=== PATIENT | female | born 1945 | race Caucasian/White ===

== ENCOUNTER → 2017-03-16 | Outpatient (CLI) | payer OTHER ==
[~2017-03-16] MED LIST: ACET-1256 PO; ALBU1AER9 INH; ASPEC325 PO; ATOR10TA82 PO; CALC600T9 PO; LISI-787 PO; MULT-506 PO; RXC5 PO
--- NOTE | 2017-03-16 16:39 | MAMMOGRAPHY REPORT ---
BILATERAL DIGITAL SCREENING MAMMOGRAM WITH CAD: 03/16/2017 CLINICAL HISTORY: Routine screening. Patient has no complaints. TECHNIQUE: Bilateral CC and MLO views were obtained. Current study was also evaluated with a Comput er Aided Detection (CAD) system. COMPARISON: Comparison is made to exams dated: 03/11/2016 mammogram, 03/08/2015 mammogram, 03/07/2014 mammogram, 03/03/2012 mammogram, 03/02/2011 mammogram, and 03/04/2010 ultrasound - [facility]. BREAST COMPOSITION: The tissue of both breasts is heterogeneously dense, which may obscure small ma sses. FINDINGS: The parenchymal pattern is similar to prior mammograms. There are benign rim calcificati ons and punctate microcalcifications in the right breast. Diffuse left breast might calcifications are stable on all available prior mammograms dating back to at least 2006. No developing mass, arch itectural distortion or cluster of suspicious microcalcifications is seen in either breast. IMPRESSION: ACR BI-RADS CATEGORY 2: BENIGN There is no mammographic evidence of malignancy. A 1 year screening mammogram is recommended. The p atient will receive written notification of the results. Approximately 10% of breast cancers are not detected with mammography. A negative mammographic repor t should not delay biopsy if a clinically suggestive mass is present. Romi West M.D. ay/:03/16/2017 15:19:40 Youth Probation Officer: Salma CHENG)(C[place]), [facility] letter sent: Normal 1/2 BI-RADS Code: ACR BI-RADS Category 2: Benign
== END | disposition home or self-care (01) ==
LOC: C.MAMM 10:01
PROVIDERS: ATTEND Family Medicine
DX: Z12.31 Encounter for screening mammogram for malignant neoplasm of breast (principal); R92.1 Mammographic calcification found on diagnostic imaging of breast

== ENCOUNTER 2021-04-11 06:40 | Inpatient (IN) ==
--- NOTE | 2021-03-13 13:59 | PAT Medication Instructions ---
Medication Instructions Date of Service March 13, 2021 Home Medications aspirin [Aspir-81] 81 mg PO QAM atorvastatin 80 mg PO HS calcium 250 mg PO QAM lisinopril-hydrochlorothiazide 1 tab PO QAM magnesium 250 mg PO QAM mometasone-formoterol [Dulera] 2 puff INHALATION BID naproxen sodium [Aleve] 220 mg PO Q8H PRN ASK your surgeon for instructions naproxen sodium [Aleve] 220 mg PO Q8H PRN ASK your prescriber and surgeon aspirin [Aspir-81] 81 mg PO QAM DO NOT take the morning of surgery calcium 250 mg PO QAM lisinopril-hydrochlorothiazide 1 tab PO QAM magnesium 250 mg PO QAM Take morning of surgery With a small sip of water, OTHERWISE NOTHING TO EAT OR DRINK AFTER MIDNIGHT: mometasone-formoterol [Dulera] 2 puff INHALATION BID Take evening before surgery atorvastatin 80 mg PO HS mometasone-formoterol [Dulera] 2 puff INHALATION BID Other Notes If you have any questions please call us at [phone] or [phone] or [phone] or [phone]
--- NOTE | 2021-03-14 08:39 | Anesthesiology Consultation ---
Date of Service March 14, 2021 Assessment & Plan (1) Encounter for pre-operative examination: - COVID screening: Per assessment on 03/14: Travel screen negative, no known COVID-19 positive contacts or current COVID-19 related symptoms. Patient had [facility]. Surgeon arranging preop COVID testing (scheduled 04/09; [place]). Awaiting results. - Check BSG AM DOS (hgba1c 6.5% on preop labs > no known hx of diabetes. Will forward labs to PCP for continuity of care) Chart Review Chart Review: Acceptable Risk for Surgery (pending surgeon-ordered PCP clearance) and Patient seen in Pre Admission Testing Teaching & Discussion Pre-Anesthesia Teaching/Discussion Notes: Instructed NPO after midnight before surgery,except medications with 15 cc of water. Medication instructions provided according to the PAT guidelines. History Surgery Operation Date: 04/11/21 07:15 Proposed Procedures p Right Total Ankle Replacement(Right) - DO ji Young Percutaneous Tendon Achilles Lengthening, Application of Platelet-Rich Plasma(Right) - DO ji Young Possible Hardware Removal - Alan Dyer DO Height/Weight Height: 5 ft Weight: 74.7 kg Allergies Allergy/AdvReac Type Severity Reaction Status Date / Time No Known Allergies Allergy Unverified 03/13/21 09:25 Medications Home Medications Medication Instructions Recorded Confirmed Last Taken aspirin [Aspir-81] 81 mg PO QAM 03/13/21 03/13/21 Unknown atorvastatin 80 mg PO HS 03/13/21 03/13/21 Unknown calcium 250 mg PO QAM 03/13/21 03/13/21 Unknown lisinopril-hydrochlorothiazide 1 tab PO QAM 03/13/21 03/13/21 Unknown magnesium 250 mg PO QAM 03/13/21 03/13/21 Unknown mometasone-formoterol [Dulera] 2 puff INHALATION BID 03/13/21 03/13/21 Unknown naproxen sodium [Aleve] 220 mg PO Q8H PRN 03/13/21 03/13/21 Unknown Past Medical History Medical History Asthma stable Hyperlipidemia Hypertension Obesity Osteoarthritis Exercise / Class Metabolic Activity III < 4 Walking/Shop/Light housework (one flight of stairs (no chest pain/occasional SOB)) Past Surgical History Surgical History History of colonoscopy History of surgery Left knee Past Anesthesia History No Hx of Anesthesia Complications and No Family Hx of Anesthesia Complications History of PONV No Hx of PONV and No Hx of Motion Sickness Social History Smoking Status: Never smoker Do You Dip or Chew Tobacco: No Hx Alcohol Use: No Hx Substance Use: No substance use type: does not use Review of Systems Intermittent morning cough r/t asthma- chronic, unchanged. Patient denies chest pain, shortness of breath, dyspnea on exertion, fever, chills, wheezing, palpitations. Physical Exam Vital Signs VITALS BP 154/83 P 74 TEMP 99.3 SP02 95%RA RESP 18 PHYSICAL Full cervical extension range of motion. Full TMJ range of motion. TMD 3 finger breaths Mallampati Score 3 Dentition: full dentures upper, edentulous Lungs: clear throughout to auscultation Cardiac: regular rate and rhythm, no murmurs noted Spine: normal Carotid arteries: negative bruit Extremities: no edema Lab Results Anesthesia Preop Results Results Anesthesia Widget: WBC 7.25 K/uL (4.8-10.8) 03/14/21 Hgb 12.9 g/dL (12.0-16.0) 03/14/21 Hct 39.3 % (37-47) 03/14/21 Plt 357 K/uL (130-400) 03/14/21 Na 138 mmol/L (136-145) 03/14/21 K 4.3 mmol/L (3.5-5.1) 03/14/21 Cl 105 mmol/L (98-107) 03/14/21 CO2 28 mmol/L (21-32) 03/14/21 BUN 20 mg/dl (7-18) H 03/14/21 Creat 0.65 mg/dl (0.6-1.2) 03/14/21 Glucose Level 88 mg/dl (70-99) 03/14/21 PT 9.6 Seconds (9.0-12.0) 03/14/21 PTT 24.7 Seconds (21.0-31.0) 03/14/21 INR 0.9 (0.9-1.1) 03/14/21 HA1c 6.5 % (4.5-5.6) H 03/14/21 Urine Color Yellow 03/14/21 Urine Appearance Clear (Clear) 03/14/21 Urine pH 6.0 (4.5-7.5) 03/14/21 Urine Specific [place] 1.009 (1.000-1.030) 03/14/21 Urine Protein Negative (Negative) 03/14/21 Urine Glucose (UA) Negative (Negative) 03/14/21 Urine Ketones Negative (Negative) 03/14/21 Urine Blood Trace (Negative) H 03/14/21 Urine Nitrite Negative (Negative) 03/14/21 Urine Bilirubin Negative (Negative) 03/14/21 Urine Urobilinogen Negative (Negative) 03/14/21 Urine Leukocyte Esterase Negative (Negative) 03/14/21 Urine WBC (Auto) 1-5 /hpf (0-5) 03/14/21 Urine RBC (Auto) 0-4 /hpf (0-4) 03/14/21 Urine Hyaline Casts (Auto) 0 /lpf (0-5) 03/14/21 Urine Epithelial Cells (Auto) 5-10 /lpf (0-5) H 03/14/21 Urine Bacteria (Auto) Negative (Negative) 03/14/21 Blood Type A Positive 03/14/21 Antibody Screen NEGATIVE 03/14/21 Lab Comments: Hgba1c 6.5% on preop labs - no known hx of diabetes > labs forwarded to PCP for continuity of care. Testing Electrocardiogram Date: 03/14/21 Findings: + NSR @ (70) Chest X-Ray Date: 03/14/21 FINDINGS: The heart is borderline enlarged. There is no failure. There is no focal pulmonary consolidation. Minor right middle lobe and lingular atelectasis/scarring is suspected.[Degenerative changes are present within the spine. IMPRESSION: No active disease in the chest.
--- NOTE | 2021-04-04 17:37 | History & Physical Report ---
Date of Service April 04, 2021 Assessment & Plan (1) Primary osteoarthritis, right ankle and foot: Schedule a Right Total Ankle Replacement, Percutaneous Tendon Achilles Lengthening, Application of Platelet-Rich Plasma, Possible Hardware Removal for 04.11.21. All potential risks, benefits, complications, alternatives, and rehab have been discussed with the patient and she wishes to proceed. Plan for Aspirin 81 mg every 12 hours for 4 weeks post op for DVT prophylaxis. (2) Contracture of right Achilles tendon: History of Present Illness Chief Complaint: right ankle pain Primary Care Provider: Mariam Damon MD This is a patient with a hx of right ankle pain that has been treated conservatively. She previously had a triple arthrodesis that had helped her hindfoot pain. However, conservative management failed at the ankle joint. She is now being set up for a total ankle arthroplasty. Allergies Allergy/AdvReac Type Severity Reaction Status Date / Time No Known Allergies Allergy Unverified 03/13/21 09:25 Home Medications Medication Instructions Recorded Confirmed Type aspirin [Aspir-81] 81 mg PO QAM 03/13/21 03/13/21 History atorvastatin 80 mg PO HS 03/13/21 03/13/21 History calcium 250 mg PO QAM 03/13/21 03/13/21 History lisinopril-hydrochlorothiazide 1 tab PO QAM 03/13/21 03/13/21 History magnesium 250 mg PO QAM 03/13/21 03/13/21 History mometasone-formoterol [Dulera] 2 puff INHALATION BID 03/13/21 03/13/21 History naproxen sodium [Aleve] 220 mg PO Q8H PRN 03/13/21 03/13/21 History Past Med/Surg History Medical History Asthma stable Hyperlipidemia Hypertension Obesity Osteoarthritis Surgical History History of colonoscopy History of surgery Left knee Social History Smoking Status: Never smoker Second Hand Exposure: No; Hx Alcohol Use: No Hx Substance Use: No Preferred Language: Martiniquais Lead Coater Required: No Beliefs That Will Affect Care: None Current Living Situation: Spouse Feels Safe at Home: Yes Assistive Devices: Denture - Upper, Denture - Lower and Glasses Physical Exam Constitutional: well developed and well nourished; no acute distress ENMT: external ear and nose normal, oropharynx normal Neck: trachea midline, no thyromegaly Respiratory: normal respiratory effort, lungs clear to auscultation Cardiovascular: Rate/Rhythm: regular rate and regular rhythm Gastrointestinal (Abdomen): normal bowel sounds, soft, nontender, no hepatosplenomegaly Musculoskeletal: Ankle: + limited ROM of ankle (right) and + joint line tenderness (ankle) (right ankle anterior and posterior); no skin erythema and no ecchymosis Skin: no rashes, warm and dry Trauma: no evidence of skin trauma Neurologic: normal touch/pain/proprioception Psychiatric: A+Ox3, euthymic affect Speech: normal rate/rhythm/volume of speech Lymphatic: no cervical or axillary lymphadenopathy
[~2021-04-11 06:40] MED LIST changes: -ACET-1256 PO; +ACETAMINOPHEN 500 MG TAB PO SCH; -ALBU1AER9 INH; -ASPEC325 PO; -ATOR10TA82 PO; -CALC600T9 PO; +CeleBREX 200 MG CAP PO SCH; +FAMOTIDINE 20 MG TAB PO SCH; +GABAPENTIN 300 MG CAP PO SCH; -LISI-787 PO; +LR 15ML/HR IV SCH; +METOCLOPRAMIDE HCL 10 MG TABLET PO SCH; -MULT-506 PO; +ROPIVACAINE 0.5% HCL/PF 150 MG, BUPIVACAINE 0.75% MPF 20 ML, EPINEPHrine 30MG/30ML (OR ... INSTIL SCH; -RXC5 PO; +ceFAZolin 1000MG 1,000 MG/7.5 ML SYR IV SCH; +dexAMETHasone 4 MG TAB PO SCH
[2021-04-11] MEDS ORDERED: ROPIVACAINE 0.5% 5 MG/ML 30 ML VIAL ONE (06:57)
[2021-04-11] MEDS ORDERED: BUPIVACAINE 0.5 % 5 MG/1 ML PF 10ML VIAL ONE (06:57)
[2021-04-11] MEDS ORDERED: EPINEPHrine INJ 1 MG/ML AMP ONE (06:58)
[2021-04-11] MEDS ORDERED: MIDAZOLAM HCL 1 MG/ML 2ML VIAL ONE (07:05)
[2021-04-11] MEDS ORDERED: PROPOFOL IV EMULSION 10 MG/ML 20 ML VIAL IV ONE (07:05)
[2021-04-11] MEDS ORDERED: ONDANSETRON INJ 2 MG/ML 2 ML VIAL ONE (07:05)
[2021-04-11] MEDS ORDERED: DEXAMETHASONE SOD INJ 4 MG/ML VIAL ONE (07:05)
[2021-04-11] MEDS ORDERED: LIDOCAINE 2% 2 ML VIAL/AMP(20MG/ML) INFIL ONE (07:05)
[2021-04-11] MEDS ORDERED: fentaNYL citrate 100 MCG/2 ML VIAL ONE ×3 (07:06→12:23)
--- NOTE | 2021-04-11 07:28 | History & Physical Bridge Note ---
Date of Service April 11, 2021 History & Physical Bridge Note I have examined the patient, reviewed the History & Physical and in the interval since the performance of the History & Physical I have noted the following changes of clinical significance: no changes noted
[2021-04-11] MEDS ORDERED: THROMBIN 5000 UNITS KIT ONE (08:29)
[2021-04-11] MEDS ORDERED: CALCIUM CHLORIDE 10% 10 ML SYR IV ONE (08:29)
[2021-04-11] MEDS ORDERED: fentaNYL citrate 100 MCG/2 ML VIAL IV PRN (10:52)
[2021-04-11] MEDS ORDERED: HYDROmorphone INJ 1 MG/ML SYRINGE IV PRN (10:52)
[2021-04-11] MEDS ORDERED: ONDANSETRON INJ 2 MG/ML 2 ML VIAL IV PRN ×2 (10:52→14:11)
[2021-04-11] MEDS ORDERED: ATROPINE SULFATE 0.1 MG/ML 10ML SYR IV PRN (10:52)
[2021-04-11] MEDS ORDERED: ePHEDrine sulfate 50 MG/ML AMP IV PRN (10:52)
[2021-04-11] MEDS ORDERED: ORTHO JOINT ANESTHETIC ONE (11:41)
--- NOTE | 2021-04-11 12:05 | Fluoroscopy Report ---
FL ankle RT min 3V RTN CLINICAL HISTORY: Ankle arthroplasty COMPARISON STUDY: CT scan dated 08/01/2020 FLUOROSCOPY TIME: 123 seconds. NUMBER OF FLUOROSCOPIC IMAGES: 2 FINDINGS: 2 intraoperative fluoroscopic spot images are provided for interpretation. There are postsu rgical changes of a total right ankle arthroplasty. 2 cannulated medial malleolar screws, and 2 cannu lated hindfoot screws are also visualized. IMPRESSION: Intraoperative fluoroscopic spot images obtained during placement of a total right ankle arthroplasty ACT 112: Negative or not required by law. Electronically signed by: Jimmy Dumont M.D. 04/11/2021 12:03 PM
--- NOTE | 2021-04-11 12:35 | Post Operative Brief Note ---
Immediate Post Op Note v1 Date of Surgery April 11, 2021 Pre & Post Diagnosis Operation Date: 04/11/21 09:05 Pre-Op Diagnosis: Right Ankle Osteoarthritis, Achilles tendon contracture, ankle impingement, Retained deep bone screw, ankle pain Post-Op Diagnosis: Right Ankle Osteoarthritis, Achilles tendon contracture, ankle impingement, Retained deep bone screw, ankle pain I identified the patient and participated in the time-out.: Yes Procedure Operation Date: 04/11/21 09:05 Actual Procedures p Right Total Ankle Replacement(Right) - DO ji Young Percutaneous Tendon Achilles Lengthening, Application of Platelet-Rich Plasma(Right) - DO ji Young deep bone screw hardware Removal - Alan Dyer DO Surgeon Alan Dyer DO Systems Engineering Manager Vinay Cotton PA-C Estimated Blood Loss 5 Findings Consistent with Post-Op Diagnosis Specimens Bone and tissue right ankle Drains Hemovac Drain Anesthesia Type General Regional Complications none Disposition Accompanied Patient To Recovery: No Disposition: Recovery Room Overlapping Procedure I was present for: the critical portions of procedure. I was immediately available: during the entire case.
--- NOTE | 2021-04-11 13:01 | Operative Report (OR) ---
DATE OF PROCEDURE: 04/11/2021 PREOPERATIVE DIAGNOSES: 1. Right ankle severe osteoarthritis. 2. Achilles tendon contracture. 3. Retained deep bone screw. 4. Ankle pain. 5. Lateral ankle impingement. POSTOPERATIVE DIAGNOSES: 1. Right ankle severe osteoarthritis. 2. Achilles tendon contracture. 3. Retained deep bone screw. 4. Ankle pain. 5. Lateral ankle impingement. PROCEDURES PERFORMED: 1. Right STAR total ankle replacement with sizes extra small talus, medium tibia and an 8 mm polyethylene. 2. Percutaneous tendo-Achilles lengthening. 3. Application of platelet rich plasma concentrate. 4. Removal of deep bone screw. SURGEON: Alan Dyer DO. UNISAW OPERATOR: Vinay Cotton PA-C who was present for patient positioning, sterile prep and drape, management of retractors and instruments. He was present through the critical portions of the case including wound closure, application of sterile dressing and transport of the patient to recovery. ANESTHESIA: General with regional. SPECIMENS: Bone and tissue, right ankle. DRAINS: Hemovac x1. COMPLICATIONS: None. BLOOD LOSS: 5 mL. PERTINENT HISTORY: This is a 76-year-old female who has had chronic progressive and worsening right ankle pain and deformity over the last several years. She attempted and failed conservative management including shoewear modification, activity modification, anti-inflammatories, rest, topical anti-inflammatories, steroid injections, use of a brace, use of an assistive device, physical therapy and physician-directed home exercises. She has failed all measures. Radiographs demonstrate severe [id number] osteoarthritis of the right ankle with slight lateral tilt with impingement. Clinically, she was also noted to have an Achilles tendon contracture. The patient was then scheduled for surgery as indicated. All potential risks, benefits, complications, alternatives, rehab potential for incomplete relief of symptoms, need for further surgery, DVT, PE, , persistent pain, swelling, scarring, weakness, neurovascular injury, wound complications, hardware failure, nonunion, malunion, bone fracture were discussed with the patient. The patient decided to proceed with the procedure as indicated. DESCRIPTION OF PROCEDURE: The patient was taken to the operative suite after popliteal block was administered. The patient was placed supine on the operating room table. Tourniquet was applied over the right lower extremity. After the patient was anesthetized, LMA was placed. The right lower extremity was then sterilely prepped and draped in the usual sterile fashion [id number], elevated and exsanguinated with an Esmarch bandage, and tourniquet inflated to 350 mmHg. Next, a 15-blade scalpel incision made in the midline of the right ankle taking care to identify the tibialis anterior. The incision was made lateral to the tibialis anterior and centered over the extensor hallucis longus tendon. The incision was deepened through subcutaneous tissue. Meticulous hemostasis was achieved with electrocautery. Full-thickness skin flaps were developed. Superficial peroneal nerve was identified, retracted, and protected. Next, the extensor retinaculum was incised along the skin incision to the lateral aspect of the tibialis anterior. Tibialis anterior was retracted medially. The extensor hallucis longus and the neurovascular bundle beneath were retracted laterally. The small crossing vessels were cauterized. The anterior capsule was then incised in its midline and then elevated medially and laterally with electrocautery. Appropriate soft tissue retractors were placed carefully to maintain essentially zero skin tension on the superficial skin. After the capsule was elevated and retracted medially and laterally to visualize the medial and lateral malleoli clearly, rongeur was used to perform synovectomy and remove any excess debris and loose bodies. Next, the wound was irrigated and suctioned. Good visualization was obtained. At this point the anterior lip of hypertrophic bone was resected from the tibia with an osteotome and mallet followed by resection of a small osteophyte medially at the medial malleolus. Next, the tibial plafond could be clearly visualized. The neck of the talus was then rongeured down to the true neck of the talus after all hypertrophic osteophytes were excised. Next, attention was directed toward the proximal tibia at which point a 15-blade scalpel incision was made anterior of the tibial tubercle the inferior aspect using the external alignment guide as a guide for pin placement which was essentially in the midline of the tibia with a slight degree of plantar flexion. Guide was placed anteriorly using a small osteotome in the medial gutter of the ankle joint to busher helper in alignment. Next, the small 2.4 mm pin was placed adjacent to the tibial tubercle and the alignment guide was placed approximately one fingerbreadth above the soft tissue and fastened there at approximately four notches medialized proximally. Next, the T- handle guide was placed anteriorly and then this was aligned with the small osteotome and placed in the medial gutter of the ankle joint to make this parallel and then also the orientation of the second ray of the foot was used to guide as well. Next, the more proximal alignment block was pinned unicortically followed by placement of the lateral alignment guide on the tibial alignment jig and the T-handle was removed. Distal cutting block was then fastened to the distal aspect of the tibial alignment guide and then x-rays obtained in AP and lateral projections of the ankle and tibia assuring appropriate alignment of the tibial alignment guide and the tibial cutting block. After appropriate alignment was established, the distal cutting block was then pinned in place with two 2.4 mm pins, one in the proximal and then secondarily in the distal aspect of the tibial cutting guide and the tibial cutting guide was aligned at the inferior aspect at the level of the tibial plafond. Next, after the tibial cutting blocks were aligned and confirmed, the medial and lateral saw capture pins were placed followed by resection of the distal tibia with a sagittal saw. The pins were removed and the distal cutting guide was then removed followed by removal of the distal tibial cut fragment after it was morselized with a small osteotome and resected with a rongeur. A cervical lamina eligibility examiner was placed in the ankle joint to open the ankle joint followed by resection of the posterior fragments from the distal tibia cut. Next, the talar cutting guide paddle was placed at the distal tibial cutting guide and fastened in place. The ankle was held in neutral dorsiflexion. Four pins were placed in the talar cutting block fixing the talus in appropriate alignment. Next, after the saw capture pins were placed, the sagittal saw was used to resect the superior aspect of the talus. The talar cutting block guide was then removed as well as the pins and talus. This was then followed by placement of datum guide which was initially placed as an extra small position with regard to position on the talus as well as orientation along the second ray. Central pin was placed and then the posterior capture cutting guide was attached and the anterior milling guide was also fastened with two football screws. Next, the anterior mill was used to resect the anterior aspect of the talar dome. Posterior cut was made. This jig was then removed followed by placement of the shoulder cutting guide and the reciprocating saw was just resect the shoulder portions of the talus using the laser cut line. This guide was then removed leaving the central pin followed by resection of the fragments using a small osteotome and mallet. This was then elevated and resected. The screw place in the talar neck was then removed with a 7.3 mm screwdriver without difficulty. The resulting hole was then curetted, irrigated with sterile saline and then bone grafted with local bone graft. Next, the window trial was firmly affixed to the superior aspect of the talus using fluoroscopic confirmation of alignment and position. Next, the central keel was drilled. The window trial was then removed following use of the central keel punch. This was also confirmed using fluoroscopic laboratory assistant. The wound was copiously irrigated with pulsatile lavage with Bacitracin additive followed by suctioning of the talar component. Platelet-rich plasma was injected at this time at the undersurface of the implant as well as in the talar dome. The final talar component was impacted in place with fluoroscopic assistance. Next, a trial polyethylene 8 mm was placed in the joint and the posterior aspect of the tibia was measured both medially and laterally. Appropriate size tibial drill guide was then placed and fastened with two pins. This was confirmed with x-ray and then the barrel drills x 2 were performed making certain to aim proximally. Next, the barrel cutting jig was then used to perform the final punch medially and laterally. The trial plate was then removed after appropriate sized polyethylene was sized. Next, the joint was copiously irrigated with pulsatile lavage followed by suctioning of all surfaces. The tibia was then injected with platelet-rich plasma as well as the superior aspect of the tibial final plate implant. This was then impacted in place with the trial polyethylene liner in place to ensure adequate positioning. Next, the final impactor was used to seat the tibial base tray flush with the anterior aspect of the tibia followed by bone grafting of the anterior barrel holes with local bone graft. This was impacted in place with a mallet and bone tamp. This then followed by confirmation with C-arm and then final polyethylene was inserted without difficulty. Excellent range of motion and stability was obtained. No liftoff was noted. The platelet-rich plasma was then sprayed within the joint and all surfaces and also into the subcutaneous tissue and deep soft tissue. A 10-Qatari single-lumen Hemovac drain was placed anterolaterally followed by closure of the ankle joint capsule with #1 Vicryl. The extensor retinaculum was closed using interrupted 2- 0 Vicryl, the dermis closed buried 3-0 Vicryl, and skin was closed using 4-0 Monocryl and Dermabond. A sterile compressive bulky Morgan Razo plaster splint was applied overwrapped with an Jose wrap. Tourniquet was released. Normal hyperemic response return to the toes. The patient was awakened and taken to recovery in stable condition. Job ID: [id number] [facility]
--- NOTE | 2021-04-11 13:28 | Anesthesiology Progress Note ---
Date of Service April 11, 2021 Anesthesia Post Procedure Vital Signs Vital Signs: Temp Pulse Pulse Resp BP Pulse Ox 04/11/21 13:15 36.6 C 04/11/21 13:10 90 14 114/58 L 99 04/11/21 13:00 89 14 107/73 99 04/11/21 12:50 90 15 120/63 99 04/11/21 12:44 36.5 C 99 H 18 119/68 98 04/11/21 07:26 36.7 C 80 15 145/105 H 98 Pain Intensity Right Foot: Pain Intensity: 0 Transfer of Care Handoff Completed per policy Notes Mental Status: alert / awake / arousable and participated in evaluation Patient Amnestic to Procedure: Yes Nausea / Vomiting: adequately controlled Pain: adequately controlled Airway Patency, RR, SpO2: stable & adequate BP & HR: stable & adequate Hydration State: stable & adequate Anesthetic Complications: no major complications apparent and Pt Satisfied with anesthetic care
[2021-04-11] MEDS ORDERED: NALOXONE HCL 0.4 MG/1 ML VIAL/CARP IV PRN (14:11)
[2021-04-11] MEDS ORDERED: bisacodyL 10 MG SUPP PR PRN (14:11)
[2021-04-11] MEDS ORDERED: HYDROmorphone INJ 0.5 MG/0.5 ML SYR IV PRN (14:11)
[2021-04-11] MEDS ORDERED: oxyCODONE HCL IR 5 MG TAB (IMMEDIATE RELEASE) PO PRN (14:11)
[2021-04-11] MEDS ORDERED: MAGNESIUM HYDROXIDE SUSP 30 ML UDC PO PRN (14:11)
[2021-04-11] MEDS: SODIUM CHLORIDE 0.9% 1000ML 1,000 ML IV SCH ×2 (14:42→23:20)
[2021-04-11] MEDS: ACETAMINOPHEN 500 MG TAB PO SCH ×2 (14:42→20:55)
[2021-04-11] MEDS: ceFAZolin 1000MG 1,000 MG/7.5 ML SYR IV SCH (17:30)
[2021-04-11] MEDS: ASPIRIN 81 MG ECTAB PO SCH (20:55)
[2021-04-11] MEDS: DOCUSATE SODIUM 100 MG CAP PO SCH (20:55)
[2021-04-11] MEDS ORDERED: ATORVASTATIN 40 MG TAB PO SCH (21:00)
[2021-04-11] MEDS ORDERED: SENNA 8.6 MG TAB PO SCH (21:00)
[2021-04-12] MEDS: ceFAZolin 1000MG 1,000 MG/7.5 ML SYR IV SCH (01:59)
[2021-04-12] MEDS: ACETAMINOPHEN 500 MG TAB PO SCH (05:33)
[2021-04-12 06:17] LABS: Hematocrit (blood only) 29.1 % (37-47); Hemoglobin 9.7 g/dL (12.0-16.0); Mean Corpuscular Hemoglobin 29.1 pg (25-34); Mean Corpuscular Hgb Conc 33.3 g/dL (32-36); Mean Corpuscular Volume 87.4 fL (80-100); Mean Platelet Volume 8.6 fL (7.4-10.4); Platelet Count 246 K/uL (130-400); RDW Coefficient of Variation 14.3 % (11.5-14.5); RDW Standard Deviation 45.7 fL (36.4-46.3); Red Blood Count 3.33 M/uL (4.2-5.4); White Blood Count 13.24 K/uL (4.8-10.8)
[2021-04-12 06:40] LABS: Calcium 8.4 mg/dl (8.5-10.1); Creatinine Clr Calc Pharmacy 52.8 ml/min; Est GFR (African American) 84.4 ml/min; Est GFR (Non-African American) 72.8 ml/min; Potassium 3.9 mmol/L (3.5-5.1)
[2021-04-12] MEDS: ASPIRIN 81 MG ECTAB PO SCH (08:14)
[2021-04-12] MEDS: DOCUSATE SODIUM 100 MG CAP PO SCH (08:14)
--- NOTE | 2021-04-12 08:44 | Orthopedic Progress Note ---
Date of Service April 12, 2021 Assessment & Plan (1) Status post right ankle joint replacement: Admission and Anticipated Discharge Date Admission Date: April 11, 2021 76 yo female stable POD #1 s/p right TAA 1. Med management 2. DVT prophylaxis- ASA, SCDs 3. PT/OT 4. D/C planning- home w/ HH Subjective Pt resting in bed, pain controlled, denies complaints Physical Exam Physical Exam: Bulky dressing in place, drain d/c'd, toes mobile, NVI Results & Data ([facility]) Vital Signs (Past 12 Hours) Vital Signs Temp Pulse Resp BP Pulse Ox 04/12/21 08:12 37.2 C 80 18 116/66 96 04/12/21 03:20 37.4 C 79 16 93/56 L 94 04/11/21 22:26 37.4 C 83 18 116/63 93 Laboratory Results 04/12/21 04/12/21 Range/Units 05:54 05:54 WBC 13.24 H (4.8-10.8) K/uL RBC 3.33 L (4.2-5.4) M/uL Hgb 9.7 L (12.0-16.0) g/dL Hct 29.1 L (37-47) % MCV 87.4 (80-100) fL MCH 29.1 (25-34) pg MCHC 33.3 (32-36) g/dL RDW Std Deviation 45.7 (36.4-46.3) fL RDW Coeff of Ana 14.3 (11.5-14.5) % Plt Count 246 (130-400) K/uL MPV 8.6 (7.4-10.4) fL Sodium 139 (136-145) mmol/L Potassium 3.9 (3.5-5.1) mmol/L Chloride 107 (98-107) mmol/L Carbon Dioxide 26 (21-32) mmol/L Anion Gap 5.0 (3-11) BUN 17 (7-18) mg/dl Creatinine 0.78 (0.6-1.2) mg/dl Est Cr Clr Drug Dosing 52.8 ml/min Est GFR ( Amer) 84.4 ml/min Est GFR (Non-Af Amer) 72.8 ml/min BUN/Creatinine Ratio 22.0 H (10-20) Glucose 128 H (70-99) mg/dl Calcium 8.4 L (8.5-10.1) mg/dl
[2021-04-12] MEDS ORDERED: NON-FORMULARY MEDICATION (Calcium 250 mg Tablet) PO SCH (09:00)
[2021-04-12] MEDS ORDERED: LISINOPRIL/HCTZ 20/12.5MG 1 TAB TAB PO SCH (09:00)
[2021-04-12] MEDS ORDERED: MULTIVITAMIN TAB PO SCH (09:00)
[2021-04-12] MEDS ORDERED: FLUTICASONE/VILANTEROL 100/25MCG 14 PUFFS/INHALER INH SCH (09:00)
[2021-04-12] MEDS ORDERED: MAGNESIUM OXIDE 400 MG TAB PO SCH (09:00)
--- NOTE | 2021-04-14 13:36 | Discharge Summary ---
Date of Service April 14, 2021 Admission HPI Per Admitting Provider This is a patient with a hx of right ankle pain that has been treated conservatively. She previously had a triple arthrodesis that had helped her hindfoot pain. However, conservative management failed at the ankle joint. She is now being set up for a total ankle arthroplasty. Admission Exam Per Admitting Provider Physical Exam Constitutional: well developed and well nourished; no acute distress ENMT: external ear and nose normal, oropharynx normal Neck: trachea midline, no thyromegaly Respiratory: normal respiratory effort, lungs clear to auscultation Cardiovascular: Rate/Rhythm: regular rate and regular rhythm Gastrointestinal (Abdomen): normal bowel sounds, soft, nontender, no hepatosplenomegaly Musculoskeletal: Ankle: + limited ROM of ankle (right) and + joint line tenderness (ankle) (right ankle anterior and posterior); no skin erythema and no ecchymosis Skin: no rashes, warm and dry Trauma: no evidence of skin trauma Neurologic: normal touch/pain/proprioception Psychiatric: A+Ox3, euthymic affect Speech: normal rate/rhythm/volume of speech Lymphatic: no cervical or axillary lymphadenopathy Principal Diagnosis Severe osteoarthritis right ankle Discharge Data Allergies Allergy/AdvReac Type Severity Reaction Status Date / Time No Known Allergies Allergy Verified 04/11/21 07:22 Procedures Performed Operation Date: 04/11/21 09:05 Actual Procedures p Right Total Ankle Replacement(Right) - DO ji Young Percutaneous Tendon Achilles Lengthening, Application of Platelet-Rich Plasma(Right) - DO ji Young Hardware Removal - Alan Dyer DO Ordered Studies 04/11/21 05:00 US - OR guided needle placemen Routine 04/11/21 09:05 FL ankle RT min 3V RTN Routine Hospital Course (1) Primary osteoarthritis, right ankle and foot: Date of Service April 12, 2021 Assessment & Plan (1) Status post right ankle joint replacement: Admission and Anticipated Discharge Date Admission Date: April 11, 2021 76 yo female stable POD #1 s/p right TAA 1. Med management 2. DVT prophylaxis- ASA, SCDs 3. PT/OT 4. D/C planning- home w/ HH Subjective Pt resting in bed, pain controlled, denies complaints Physical Exam Physical Exam: Bulky dressing in place, drain d/c'd, toes mobile, NVI Results & Data ([facility]) Vital Signs (Past 12 Hours) Vital Signs Temp Pulse Resp BP Pulse Ox 04/12/21 08:12 37.2 C 80 18 116/66 96 04/12/21 03:20 37.4 C 79 16 93/56 L 94 04/11/21 22:26 37.4 C 83 18 116/63 93 Laboratory Results 04/12/21 04/12/21 Range/Units 05:54 05:54 WBC 13.24 H (4.8-10.8) K/uL RBC 3.33 L (4.2-5.4) M/uL Hgb 9.7 L (12.0-16.0) g/dL Hct 29.1 L (37-47) % Total Time Total Time Spent Total Time Spent (In Minutes): 5 Discharge Plan Discharge Items Patient Disposition: Home - Self-Care Reason For Visit: Right Ankle Osteoarthritis, Impingement, Retained Discharge Diagnosis: Right ankle arthritis Activity: Per Instructions section Non-emergency contact: Surgeon Call non-emergency contact if: you have any medication questions, your pain is not controlled, your temperature is above 101.5, your wound has increased redness and your wound has increased drainage Follow-up/Referrals: Mariam Damon MD [Primary Care Provider] - Diet: Regular Addtl Attending Provider Instructions: Nonweightbearing right lower extremity with walker or knee scooter. Maintain dressing until follow-up with MD. Frequent ice and elevation. Follow-up with Dr Dyer ~ 2 weeks. Call [phone] with questions or concerns. Pending Studies at Discharge: No Stand-Alone Forms: My [facility], Opioid Pain Management, Smoking Cessation Medications and DC Order Prescriptions: New aspirin 81 mg Tablet,Delayed Release (Dr/Ec) 81 mg PO BID 30 Days Qty: 60 RF: 0 acetaminophen 500 mg Tablet 1,000 mg PO Q8 Qty: 0 RF: 0 oxycodone 5 mg tablet 5 - 10 mg PO Q6 MDD 6 tablets daily PRN (Reason: pain) Qty: 20 RF: 0 Continued atorvastatin 80 mg Tablet 80 mg PO HS RF: 0 lisinopril-hydrochlorothiazide 20-12.5 mg Tablet 1 tab PO QAM RF: 0 naproxen sodium [Aleve] 220 mg Tablet 220 mg PO Q8H PRN (Reason: Pain) RF: 0 calcium 250 mg Tablet 250 mg PO QAM RF: 0 magnesium 250 mg Tablet 250 mg PO QAM RF: 0 Dulera 100-5 mcg/actuation Hfa Aerosol Inhaler 2 puff INHALATION BID RF: 0 Discontinued aspirin [Aspir-81] 81 mg Tablet,Delayed Release (Dr/Ec) 81 mg PO QAM RF: 0 Discharge Orders: Discharge Order (Routine); Ordered 04/12/21 Ordered By: Frederick Quick/Other Patient Handouts: Preventing Deep Vein Thrombosis Admission Data Admit Date/Time: 04/11/21 12:43 Attending Provider: Alan Dyer Admit Provider: Alan Dyer Primary Care Provider: Mariam Damon Other Providers: [facility]Home [facility] Other Interventions: Discharge Summary Assessment (RN) Last Done: 04/12/21 10:47
== END 2021-04-12 11:26 | disposition home health service (06) | DRG 470 ==
LOC: ASU 06:40 → 3E 12:43